=== PATIENT | male | born 1975 | race Caucasian/White ===

== ENCOUNTER → 2017-11-06 | Day surgery (SDC) | payer OTHER ==
[~2017-11-06] VITALS: Ht 175.3 cm; Wt 74.8 kg
[~2017-11-06] MED LIST: AUGMENTIN 875-1 EACH PO; BACTRIM DS TAB1 EACH PO; CHERATUSSIN AC118 M1 PO; OXYCODONE HCL5 M1 PO; PERCOCET 5-3251 EACH PO
--- NOTE | 2017-11-06 11:07 | Operative Report ---
Operative/Inv Procedure Report Surgery Date: 11/06/17 Name of Procedure: Robotic repair of right inguinal hernia and open repair of incarcerated ventral hernia with 4.[address] mesh Pre-Operative Diagnosis: Right inguinal hernia and incarcerated ventral hernia Post-Operative Diagnosis: Same Estimated Blood Loss: none Surgeon/Portfolio Accountant: Chacorta GARCIA,Nicolás Burns PA-C Anesthesia: general endotracheal tube, local half percent Marcaine plain IV Fluids: 1 L crystalloid Implants: 3-D Max medium right mesh and 4.[address] Drains: None Specimens: None Complications: None Condition: Excellent to PACU Operative Indication: Josse is a 42-year-old gentleman with long-standing right groin pain. He is found to have an inguinal hernia on exam that is reducible and likely explains his symptoms. He is also found to have a small supraumbilical ventral hernia incarcerated with fat.presents for elective repair of both using the robot to repair the groin Operative/Procedure Note Note: Patient's taken to the operating room placed on the operating table in supine position following an awake timeout he went underwent uneventful induction of general endotracheal anesthesia had his left arm tucked by his side Venodyne boots in place and received IV Kefzol IV prior to skin incision. It been clipped in the preop holding area and now his abdomen prepped widely with DuraPrep draped usual sterile fashion including Ioban. His groin had been marked in the preoperative holding area and the lynch were visible in the field is prepped indicating the right side as the correct side of the groin. Local anesthetic was then infiltrated in the super umbilical area and a curvilinear incision made down to the protruding preperitoneal fat was covered by a thin layer of attenuated fascia. Surrounding fascia was cleared off and the umbilicus retracted inferiorly dissecting the back of the umbilical dermis from the top portion which was adherent to the hernia material. The pre-peritoneal fat was now dissected through until the peritoneum was encountered and this was incised carefully to gain entry safely into the peritoneal cavity. Finger sweep revealed there were no adhesions and the 12 mm Cruz aerocele port placed and pneumoperitoneum achieved. 8 mm 30 da Héctor excised camera was inserted and I placed 2 8 mm working ports out laterally under direct vision after infiltrating local anesthetic the right side being slightly more cephalad. The patient was placed in Trendelenburg position and with the camera in place we could see that there was no evidence of an indirect hernia. Now the da Héctor xi robot was docked and outfitted with a fenestrated bipolar in the left hand arm #2 and the right hand with a monopolar rehan in arm #4. I created a peritoneal flap 4 cm cephalad to the internal ring carrying this across the right lower quadrant just medial to the medial umbilical ligament. The epigastric vessels could be well seen and they were preserved and her usual anatomic position against the and anterior abdominal wall. The flap was peeled down off of the cord and again there was no evidence of an indirect hernia. Medially the flap was taking all way to the midline exposing the symphysis pubis and in doing so the direct space was well seen and seen to be free of any hernia. There was a small tongue of fat adherent to the femoral space only. I turned my attention to the internal ring and here identified a tongue of preperitoneal fat that was coming from laterally and exiting out the internal ring. With traction on this I was able to reduce a very large egg-sized lipoma which easily dissected off of the cord was very distinct from it and easily peeled back to where it would sit nicely in front of the mesh. Was adherent to some retroperitoneal fat and one location but was clearly distinct from this and I divided this attachment. I now had an excellent exposure of the entire myopectineal orifice and selected a 3-D Max medium mesh and placed into the space where it sat nicely overlapping the symphysis medially and the tail sat in the space laterally. The inferior edge of the mesh sat just above or I had dissected the peritoneum and sat above the origin of the large lipoma. Secured the mesh in place in 2 locations with a very thin bite of the fascia using 2-0 Tycron suture one superior medially and the other superolaterally. The triangle of pain was avoided at the bites were very superficial. This held the mesh nicely in place. The flap was now closed with a 20V LOC 90 day suture 9 inch in a running fashion with the large lipoma placed between the flap peritoneum and the mesh. The ports were removed under direct vision after we undocked the robot and then we released the pneumo and then Cruz umbilical port. I was able to close the peritoneum as a separate layer using a running 3-0 Vicryl suture and then created a pocket under the fascia to accommodate a 4.[address] mesh which was secured superiorly and inferiorly with with 2-0 Vicryl suture on its tabs. The algaaciq fascia was now closed over this with 0 Maxon [id number] sutures 2 in a transverse orientation. I used some interrupted 3-0 Vicryl sutures to close the subcutaneous including a single suture on the back of the umbilical dermis to reconstitute the concavity of the umbilicus at that had been disrupted by the dissection. 4-0 Monocryl subcuticular was used on the skin at all sites and then Steri-Strips 4 x 4 and OpSite placed. Marker stolid the procedure well was taken to the recovery room in satisfactory condition extubated all sponge needle was recount confirms correct 2 completion of the case Findings: Giant lateral lipoma. No evidence of indirect sac or direct hernia 2 cm ventral hernia defect with incarcerated preperitoneal fat Discharge Disposition: PACU
== END ==
LOC: STS 01:54
DX: K40.90 Unilateral inguinal hernia, without obstruction or gangrene, not specified as recurrent (principal); K43.6 Other and unspecified ventral hernia with obstruction, without gangrene; I10 Essential (primary) hypertension; F17.210 Nicotine dependence, cigarettes, uncomplicated; I45.6 Pre-excitation syndrome
CPT/HCPCS: 49650; 49561; 49568; S2900; C1781; J0131; J0690; J2250; J3490